=== PATIENT | male | born 1960 ===

== ENCOUNTER 2023-04-07 07:22 | Day surgery (SDC) | payer OTHER ==
[2023-04-07] MEDS ORDERED: DIPHENHYDRAMINE HCL 50 MG/ML VIAL 1ML IV ONE (13:15)
[2023-04-07] MEDS ORDERED: MIDAZOLAM HCL 2 MG/2 ML VIAL IV ONE (13:15)
[2023-04-07] MEDS ORDERED: fentaNYL CITRATE 50 MCG/ML AMPUL IV ONE (13:15)
== END 2023-04-07 13:00 | disposition home or self-care (01) ==
LOC: AMB-ENDOS 07:22
PROVIDERS: ATTEND Surgery
DX: D12.2 Benign neoplasm of ascending colon (principal); D12.5 Benign neoplasm of sigmoid colon; D12.4 Benign neoplasm of descending colon; K63.5 Polyp of colon; K62.5 Hemorrhage of anus and rectum; K57.30 Diverticulosis of large intestine without perforation or abscess without bleeding; Z20.822 Contact with and (suspected) exposure to COVID-19